=== PATIENT | male | born 1960 | race Caucasian/White ===

== ENCOUNTER → 2025-06-24 10:53 | Outpatient (BNVA) | payer SELFPAY | PROVIDERS: PCP Nurse Practitioner Family; Visit Provider Nurse Practitioner Family | DX: R35.0 Frequency of micturition (principal); N39.0 Urinary tract infection, site not specified | CPT/HCPCS: 81000; 81003; 87086 ==

== ENCOUNTER 2025-07-04 08:38 | Outpatient (CLI) | payer SELFPAY ==
--- NOTE | 2025-07-04 08:45 | MR_ITS ---
WS: [id number] MRI LEFT KNEE NONCONTRAST TECHNIQUE: Axial PD, coronal PD fat sat, coronal PD, sagittal PD, and sagittal PD fat-sat images obtained. CLINICAL INFORMATION: M71.20 - Synovial cyst of popliteal space [Powell], unspec... COMPARISON: None. FINDINGS: Distal quadriceps and patella tendons are intact. Hypertrophic patella. ACL and PCL appear intact. Lobulated ganglion cyst along the dorsal ACL measuring 2.2 x 1.3 cm. Moderate tricompartmental arthritis. Chronic thinning of the medial and lateral meniscus. Chronic appearing tear involving the posterior horn medial meniscus. Grade 3 chondromalacia patella. Medial and lateral patellar retinaculum appear intact. Medial and lateral collateral ligaments appear intact. Normal popliteal fossa. MR/MR knee LT wo con* [id number] IMPRESSION: 1. Lobulated ganglion cyst in the intercondylar notch along the dorsal ACL fib ers measuring approximately 2.2 x 1.3 cm. 2. ACL and PCL appear intact. 3. Moderate tricompartment arthritis. 4. Chronic appearing tear involving the posterior horn medial meniscus with ch ronic thinning . 5. Grade 3 chondromalacia patella. [facility]bridge grading: grade III: partial-thickness cartilage loss with focal ulcer ation
== END 2025-07-04 08:39 | disposition home or self-care (01) ==
LOC: RAD 08:41
PROVIDERS: PCP Nurse Practitioner Family; Visit Provider Nurse Practitioner Family
DX: M71.20 Synovial cyst of popliteal space [Baker], unspecified knee (principal); N39.0 Urinary tract infection, site not specified; M67.462 Ganglion, left knee; M13.862 Other specified arthritis, left knee; M23.222 Derangement of posterior horn of medial meniscus due to old tear or injury, left knee; M22.42 Chondromalacia patellae, left knee
CPT/HCPCS: 73721